=== PATIENT | female | born 1990 | race Hispanic/Latino ===

== ENCOUNTER 2018-08-05 08:56 | Emergency (ER) | payer SELFPAY ==
[2018-08-05] MEDS ORDERED: KETOROLAC TROMETHAMINE 30MG/ML ONE (10:06)
== END 2018-08-05 11:28 | disposition home or self-care (01) ==
LOC: EDH 08:56
DX: S13.4XXA Sprain of ligaments of cervical spine, initial encounter (principal); M43.6 Torticollis; Z98.890 Other specified postprocedural states; X58.XXXA Exposure to other specified factors, initial encounter; Y93.89 Activity, other specified; Y92.098 Other place in other non-institutional residence as the place of occurrence of the external cause; Y99.8 Other external cause status
CPT/HCPCS: 70360; 96372; 99284; J1885